=== PATIENT | male | born 1980 | race African-American/Black ===

== ENCOUNTER 2020-12-16 08:35 | Emergency (ER) | payer BC ==
[~2020-12-16] VITALS: Ht 170.2 cm; Wt 83.9 kg
[~2020-12-16 08:35] MED LIST: FLEXERIL PO; FLONASE 0.05%50 MCG; IBUPROFEN 800800 M1 PO; TESSALON PERLE100 MG PO; VENTOLIN HFA 1818 GM INH; ZYRTEC10 M2; [UNRECOGNIZED DRUG - REMARK]
[2020-12-16] MEDS ORDERED: LIPITOR10 MG PO (08:41)
[2020-12-16] MEDS ORDERED: COZAAR 25 MG TA25 MG PO (08:41)
[2020-12-16 09:18] LABS: ABSOLUTE NEUTROPHILS 7.9 thou/uL (1.4-8.2); BASOPHILS 0.9 % (0.0-2.0); EOSINOPHILS 3.4 % (0.0-3.0); HEMATOCRIT 55.1 % (42.0-52.0); HEMOGLOBIN 18.4 gm/dL (14.0-18.0); LYMPHOCYTES 25.6 % (24.0-44.0); MCHC 33.5 g/dL (28.0-37.0); MCV 98.4 fL (80.0-100.0); PLATELET COUNT 437 thou/uL (150-400); POLYS 65.1 % (36.0-66.0); RBC 5.59 mil/uL (4.50-6.00); RDW 14.2 % (10.5-14.5); WBC 12.1 thou/uL (4.0-11.0)
[2020-12-16 09:27] LABS: CALCIUM 9.1 mg/dL (8.5-10.1); CREATININE 1.3 mg/dL (0.7-1.3); POTASSIUM 4.3 mmol/L (3.5-5.1)
[2020-12-16 09:37] LABS: ALBUMIN 4.2 g/dL (3.4-5.0); TOTAL BILIRUBIN 0.6 mg/dL (0.2-1.0); TOTAL PROTEIN 7.6 g/dL (6.4-8.2)
--- NOTE | 2020-12-16 11:24 | EKG ---
[place] [address] [facility] [place] [address] ELECTROCARDIOGRAM REPORT Name: CHIO CHUNG Room #: REG ANDREW Patricia#: [id number] Admission: 12/16/20 Attend Phys: Discharge: Date of : 82 Report #: [id number] [facility] ED Test Date: 2020-12-16 Test Time: 08:43:34 Pat Name: CHIO CHUNG Department: Room: Gender: M Medical Claims Examiner: JOSE ALEJANDRO : 1980 Requested By: Jesse Decker Order Number: [id number] MD: Skyler Keenan Measurements Intervals [place] Rate: 62 P: 24 UT: 151 QRS: 269 QRSD: 87 T: 41 QT: 404 QTc: 411 Interpretive Statements Sinus rhythm LAD, consider left anterior fascicular block ST elev, probable normal early repol pattern No previous ECG available for comparison Electronically Signed On 12-16-2020 11:23:51 CDT by Skyler Keenan [email or web address] <ELECTRONICALLY SIGNED> By: Skyler Keenan MD 12/16/20 [id number] Skyler Keenan MD /EPI
[2020-12-16 11:39] LABS: AMP/METHAMP Negative (Negative); BARBITURATES Negative (Negative); BENZODIAZEPINES Negative (Negative); COCAINE Negative (Negative); METHADONE Negative (Negative); OPIATES Negative (Negative); PCP Negative (Negative)
[2020-12-16 12:05] VITALS: BP 133/84
--- NOTE | 2020-12-17 11:57 | EKG ---
[place] [address] [email or web address] [address] ELECTROCARDIOGRAM REPORT Name: CHIO CHUNG [facility] [id number] Admission: 12/16/20 Attend Phys: Discharge: 12/16/20 Date of : 82 Report #: [id number] [facility] ED Test Date: 2020-12-16 Test Time: 11:23:57 Pat Name: CHIO CHUNG Department: Room: Gender: M [employer]: : 1980 Requested By: Jesse Decker Order Number: [id number] MD: Skyler Keenan Measurements Intervals [place] Rate: 54 P: 58 [place]: 167 QRS: 145 QRSD: 94 T: 33 QT: 432 QTc: 410 Interpretive Statements Sinus rhythm Left posterior fascicular block ST elev, probable normal early repol pattern Compared to ECG 12/16/2020 08:43:34 Left posterior fascicular block now present ST (T wave) deviation still present Electronically Signed On 12-17-2020 11:57:39 CDT by Skyler Keenan [email or web address] <ELECTRONICALLY SIGNED> By: Skyler Keenan MD 12/17/20 1157 22 112 Skyler Keenan MD /DANY
== END 2020-12-16 12:24 | disposition home or self-care (01) ==
LOC: ER 08:35
PROVIDERS: Student in an Organized Health Care Education/Training Program
DX: R07.89 Other chest pain (principal); Z20.822 Contact with and (suspected) exposure to COVID-19; Z79.899 Other long term (current) drug therapy; Z88.5 Allergy status to narcotic agent

== ENCOUNTER → 2021-01-03 | Outpatient (CLI) | payer BC ==
[~2021-01-03] MED LIST changes: +COZAAR 25 MG TA25 MG PO; +LIPITOR10 MG PO
== END ==
LOC: SJCVCIMAG 08:22
PROVIDERS: ATTEND Internal Medicine
DX: I07.1 Rheumatic tricuspid insufficiency (principal); I10 Essential (primary) hypertension